=== PATIENT | female | born 1995 | race Caucasian/White ===

== ENCOUNTER 2018-08-06 08:00 | Inpatient (IN) | payer MEDICAID ==
[~2018-08-06] VITALS: Ht 160 cm; Wt 86.4 kg
[2018-08-06 13:05] VITALS: Ht 160 cm; Wt 86.4 kg
[2018-08-06 13:06] VITALS: BP 119/67
[2018-08-06] MEDS ORDERED: PREN1TAB71 PO (13:07)
[2018-08-06] MEDS ORDERED: FERR134T PO (13:08)
[2018-08-06] MEDS ORDERED: METHYLERGONOVINE 0.2 MG INJ IM PRN (13:30)
[2018-08-06] MEDS ORDERED: OXYTOCIN 30 UNITS/LR 500 ML IV PRN (13:30)
[2018-08-06] MEDS ORDERED: BUTORPHANOL 2 MG INJ IV PRN (13:30)
[2018-08-06] MEDS ORDERED: OXYTOCIN 30 UNITS/LR 500 ML IV SCH ×3 (13:30)
[2018-08-06] MEDS ORDERED: MISOPROSTOL 200 MCG TAB PR PRN (13:30)
[2018-08-06] MEDS ORDERED: LIDOCAINE 1% (MPF) 30 ML INJ INJ PRN (13:30)
[2018-08-06] MEDS ORDERED: CARBOPROST 250 MCG INJ IM PRN (13:30)
[2018-08-06] MEDS: LACTATED RINGER'S 1,000 ML IV SCH ×4 (13:31→22:54)
--- NOTE | 2018-08-06 20:13 | HKNOTE ---
DATE OF SERVICE: HISTORY OF PRESENT ILLNESS: Ms. Sissy Vital is a 23-year-old, 1, para 0, EDC of 9 intrauterine at 40 weeks and 2 days gestational age, presented to triage complaining of c ontractions since early this morning. She was admitted in labor. She denies any vaginal bleeding or discharge. Her care took place comprehensive at [facility]. PAST MEDICAL HISTORY: None. MEDICATIONS: vitamins. PAST SURGICAL HISTORY: None. OBSTETRIC HISTORY: Prima . GYNECOLOGIC HISTORY: 10, regular 3 to 4 days. Denies any sexually transmitted, sexually active with 1 partner. SOCIAL HISTORY: Denies any smoking, drugs or alcohol. FAMILY HISTORY: None. REVIEW OF SYSTEMS: All within normal except as history of present illness. PHYSICAL EXAMINATION: HEENT: Within normal. LUNGS: CTA bilateral. CARDIOVASCULAR: S1, S2, regular rhythm. ABDOMEN: Gravid, nontender. Negative CVA bilateral. EXTREMITIES: No calf tenderness. PELVIC: Vaginal exam is 4 cm dilated, 80% effaced, -1 station. Artificial rupture of membrane. Fet al heart tracing category 1. [place] regular contractions. ASSESSMENT: Intrauterine at term in labor. PLAN: Anticipated vaginal delivery. Please note the estimated weight of approximately 4000 gr ams. The patient was explained the risk of possible shoulder dystocia and a delivery was al so offered; however, she declines at this time and desires to proceed with a vaginal delivery. Dictated By: KATHRYN KELSEY/BRITTANY Conf#: [id number] DID#: [id number]
--- NOTE | 2018-08-06 21:29 | PREAC ---
Date/Time of Note Date/Time of Note DATE: 08/06/18 TIME: 21:28 Anesthesia Eval and Record Evaluation Time Pre-Procedure Interview DATE: 08/06/18 TIME: 21:28 Age 23 Sex female NPO: 8 hrs Preoperative diagnosis IUP Planned procedure L&D Epidural Past Medical History Past Medical History: None Surgery & Anesthesia Issues No known issue Meds Anticoagulation: No Beta Krupa within 24 hr: No Reason Beta Krupa not given: Pt. not on B-Krupa Reported Medications Ferrous Sulfate (Iron) 134 Mg Tablet, 134 MG PO, TAB 08/06/18 Vit No.130/Iron/FA ( Tablet) 1 Each Tablet, 1 EACH PO 08/06/18 Current Medications Lactated Ringer's 1,000 ml @ 125 mls/hr Q8H IV Last administered on 08/06/18at 21:00; Admin Dose 125 MLS/HR; Start 08/06/18 at 13:08 Butorphanol Tartrate (Stadol) 2 mg Q2H PRN IV PAIN; Start 08/06/18 at 13:30 Lidocaine (Xylocaine 1% (Mpf)) 30 ml ONCE PRN INJ EPISIOTOMY; Start 08/06/18 at 13:30 Oxytocin/Lactated Ringer's 500 ml @ 500 mls/hr ONCE POST IV ; Start 08/06/18 at 13:30 Oxytocin/Lactated Ringer's 500 ml @ 125 mls/hr POST IV ; Start 08/06/18 at 13:30 Oxytocin/Lactated Ringer's 500 ml @ 0 mls/hr ONCE PRN IV VAGINAL BLEEDING; Start 08/06/18 at 13:30 Methylergonovine Maleate (Methergine) 0.2 mg ONCE PRN IM VAGINAL BLEEDING; Start 08/06/18 at 13:30 Carboprost Tromethamine (Hemabate) 250 mcg ONCE PRN IM VAGINAL BLEEDING; Start 08/06/18 at 13:30 Misoprostol (Cytotec) 1,000 mcg ONCE PRN NE VAGINAL BLEEDING; Start 08/06/18 at 13:30 Meds reviewed: Yes Allergies Coded Allergies: No Known Drug Allergies (Verified Allergy, Unknown, 08/06/18) Allergies Reviewed: Yes Labs/Studies Labs Reviewed: Reviewed by anesthesiologist Result Diagram: 08/06/18 1255 Laboratory Tests 08/06/18 12:55 Blood Bank Test 08/06/18 12:55 Antibody Screen NEGATIVE Blood Type B POSITIVE Rh Immune Globulin Candidate NO test: Positive Studies: ECG Pre-procedure Exam Last vitals Vital Signs Date Temp Pulse Resp B/P (MAP) Pulse Ox O2 O2 Flow FiO2 Time Delivery Rate 08/06/18 98.3 119/67 13:06 (84) Airway: Adequate mouth opening, Adequate thyromental dist Mallampati: Mallampati II Teeth: Normal Lung: Normal Heart: Normal ASA Physical Status ASA physical status: 2 Emergency: None Planned Anesthetic Neuraxial: Epidural Planned Pain Management Epidural, Parenteral pain med Pre-operative Attestations Prior to commencing anesthesia and surgery, the patient was re-evaluated, there was verification of: *The patient's identity *The results of appropriate recent lab work and preoperative vital signs *The above evaluation not changing prior to induction *Anesthetic plan, risk benefits, alternative and complications discussed with patient/family; questions answered; patient/family understands, accepts and wishes to proceed. ARPITA CURRY MD Aug 06, 2018 21:29
[2018-08-06] MEDS ORDERED: NALOXONE (0.4 MG/ML) INJ IV PRN (21:30)
[2018-08-06] MEDS ORDERED: ONDANSETRON 4 MG INJ IV PRN (21:30)
[2018-08-06] MEDS ORDERED: DIPHENHYDRAMINE 50 MG INJ IV PRN (21:30)
[2018-08-07] MEDS: LACTATED RINGER'S 1,000 ML IV SCH ×3 (01:44→11:27)
[2018-08-07] MEDS: FENTAnyl 2MCG/ML-ROPIV 0.2% 100 ML BAG EPI SCH ×2 (05:22→11:24)
[2018-08-07] MEDS ORDERED: AMPICILLIN 2 GM/NS (PMX) 100 ML IV ONE (13:30)
[2018-08-07] MEDS ORDERED: MINERAL OIL LIGHT 10 ML VIAL TOP ONE (15:00)
[2018-08-07] MEDS ORDERED: OXYTOCIN 30 UNITS/LR 500 ML IV SCH (17:09)
--- NOTE | 2018-08-07 17:09 | LDN ---
Date/Time of Note Date/Time of Note DATE: 08/07/18 TIME: 17:08 Delivery Summary Weeks of Gestation 40 Placenta Delivered: Spontaneously Meconium: none Episiotomy: Yes Laceration repair: rmle repair with 2-0 and 3-0 chromic Anesthesia type: Epidural Estimated blood loss: 250 Sponge & Needle done & correct: Yes All needle counts correct: Yes Any foreign bodies felt in the: No Delivery Information Sex Sex: female Apgars 1 Minute: 8 5 Minute: 9 Suctioning Nose & mouth suctioned at jovanni: No Delee suction performed: No Umbilical Cord Umbilical cord with: 3 Vessels Cord presentations: no nuchal cord Cord Blood was obtained: Yes Mother & Baby Disposition Disposition Mom & Baby to Maternity; Good: Yes Baby to NICU: No KATHRYN MCKEON MD Aug 07, 2018 17:09
[2018-08-07] MEDS ORDERED: MISOPROSTOL 200 MCG TAB PR PRN (17:30)
[2018-08-07] MEDS ORDERED: DIBUCAINE 1% 30 GM OINT TOP PRN (17:30)
[2018-08-07] MEDS ORDERED: BENZOCAINE 20% 56 ML SPRAY TOP PRN (17:30)
[2018-08-07] MEDS ORDERED: CARBOPROST 250 MCG INJ IM PRN (17:30)
[2018-08-07] MEDS ORDERED: NACL 0.9% 3 ML SYG IV SCH (17:30)
[2018-08-07] MEDS ORDERED: METHYLERGONOVINE 0.2 MG INJ IM PRN (17:30)
[2018-08-07] MEDS ORDERED: WITCH HAZEL/GLYCERIN PAD PR PRN (17:30)
[2018-08-07] MEDS ORDERED: ONDANSETRON 4 MG TAB PO PRN (17:30)
[2018-08-07] MEDS ORDERED: DIPHENHYDRAMINE 25 MG CAP PO PRN (17:30)
[2018-08-07] MEDS ORDERED: OXYCODONE/ASPIRIN (4.88/325) TAB PO PRN ×2 (17:30)
[2018-08-07] MEDS ORDERED: ONDANSETRON 4 MG INJ IV PRN (17:30)
[2018-08-07] MEDS ORDERED: SENNA/DOCUSATE NA (8.6MG/50MG) TAB PO PRN (17:30)
[2018-08-07] MEDS ORDERED: ACETAMINOPHEN 325 MG TAB PO PRN (17:30)
[2018-08-07] MEDS ORDERED: OXYTOCIN 30 UNITS/LR 500 ML IV PRN (17:30)
[2018-08-07] MEDS ORDERED: AMPICILLIN 1 GM/NS (PMX) 50 ML IV SCH (17:30)
[2018-08-07] MEDS ORDERED: ZOLPIDEM 5 MG TAB PO PRN (17:30)
[2018-08-07 18:00] VITALS: BP 106/56; PULSE 106; RESP 20
[2018-08-07] MEDS: IBUPROFEN 600 MG TAB PO SCH (18:45)
[2018-08-07] MEDS: LANOLIN HPA 1 PKT TOP PRN (18:45)
[2018-08-07 19:45] VITALS: BP 96/55; PULSE 118; RESP 18
[2018-08-07] MEDS: MAGNESIUM HYDROXIDE 30ML CUP PO SCH (21:14)
[2018-08-07] MEDS: SENNA/DOCUSATE NA (8.6MG/50MG) TAB PO SCH (21:14)
[2018-08-08 00:02] VITALS: BP 91/52; PULSE 97; RESP 18
[2018-08-08] MEDS: IBUPROFEN 600 MG TAB PO SCH ×5 (00:02→23:36)
[2018-08-08 03:59] VITALS: BP 99/57; PULSE 91; RESP 18
[2018-08-08 07:40] VITALS: BP 89/52; PULSE 90; RESP 16
[2018-08-08] MEDS: SENNA/DOCUSATE NA (8.6MG/50MG) TAB PO SCH ×2 (09:07→21:15)
[2018-08-08] MEDS: MAGNESIUM HYDROXIDE 30ML CUP PO SCH ×2 (09:07→21:15)
[2018-08-08 15:30] VITALS: BP 97/55; PULSE 100; RESP 16
--- NOTE | 2018-08-08 16:52 | PAC ---
Date/Time of Note Date/Time of Note DATE: 08/08/18 TIME: 16:51 Post-Anesthesia Notes Post-Anesthesia Note Last documented vital signs Vital Signs Date Temp Pulse Resp B/P (MAP) Pulse Ox O2 O2 Flow FiO2 Time Delivery Rate 08/08/18 97.4 100 16 97/55 (69) Room Air 15:30 Activity: WNL Respiratory function: WNL Cardiovascular function: WNL Mental status: Baseline Pain reasonably controlled: Yes Hydration appropriate: Yes Nausea/Vomiting absent: Yes Comments BP:108/58, pulse:74, spo2:100%, T:98,8 ARPITA CURRY MD Aug 08, 2018 16:52
--- NOTE | 2018-08-08 19:53 | DS ---
Date/Time of Note Date/Time of Note DATE: 08/08/18 TIME: 19:53 Obstetrical Discharge Record Final Diagnosis Final Diagnosis: Term delivered Vaginal Delivery Obstetrical Delivery: Spontaneous, Episiotomy, Repaired Condition on Discharge Physical Assessment Last Vitals: stable afebrile Voiding: Yes Bowel Movement: Yes Breast: Soft, non-tender, Filling Fundus: Firm Episiotomy: intact Calf Tenderness: No Patient Condition: Fair KATHRYN MCKEON MD Aug 08, 2018 19:53
--- NOTE | 2018-08-08 19:54 | PD.PPDC ---
[employer] Discharge Instruction Condition [id number] Patient Condition: Minyd7l Fair Diet [id number] Diet: [id number] Resume Regular Diet Activity/Restrictions [id number] Activity: Volii2q Normal Activity May Shower [id number] Restrictions: [id number] No Exercising No Lifting No Driving No Sexual Activity Nothing in the Vagina No [place] No Tampons, douche Follow-up Follow-up with Physician: 3, Week/Weeks Return to clinic for [id number] [employer] MANAGER Instructions: [id number] Fever greater than 101 Chills Worsening abdominal pain Excessive Vaginal Bleeding More than 2 pads per hour Unable to tolerate diet [id number] OB Instructions: [id number] Breast Tenderness Depression Blurried Vision Headache [id number] Surgical Instructions: [id number] Incisional Drainage Incisional Redness KTAHRYN MCKEON MD Aug 08, 2018 19:54
[2018-08-08 20:00] VITALS: BP 102/67; PULSE 100; RESP 18
[2018-08-08] MEDS: LANOLIN HPA 1 PKT TOP PRN (21:15)
[2018-08-09 04:00] VITALS: BP 100/50; PULSE 78; RESP 18
[2018-08-09] MEDS: IBUPROFEN 600 MG TAB PO SCH ×2 (05:41→11:43)
[2018-08-09 08:00] VITALS: BP 95/56; PULSE 83; RESP 18
[2018-08-09] MEDS: SENNA/DOCUSATE NA (8.6MG/50MG) TAB PO SCH (09:00)
[2018-08-09] MEDS: MAGNESIUM HYDROXIDE 30ML CUP PO SCH (09:00)
== END 2018-08-09 15:30 | disposition home or self-care (01) | DRG 807 ==
LOC: L-D 11:30 → PP1 08-07 17:44
PROVIDERS: ADMIT Obstetrics & Gynecology; ATTEND Obstetrics & Gynecology
PROC: 0W8NXZZ Division of Female Perineum, External Approach (ICD-10-PCS; 2018-08-06)
PROC: 10E0XZZ Delivery of Products of Conception, External Approach (ICD-10-PCS; principal; 2018-08-06 08:00)
DX: O80 Encounter for full-term uncomplicated delivery (principal); Z37.0 Single live birth; Z3A.40 40 weeks gestation of pregnancy
CPT/HCPCS: 62319; 76815; 85025; 85610; 85730; 86592; 86762; 86850; 86900; 86901; 87340; 99464; J0290; J2210; J2590; J3010; J7120